=== PATIENT | female | born 1980 | race Hispanic/Latino ===

== ENCOUNTER 2020-05-20 01:37 | Emergency (ER) | payer OTHER ==
[~2020-05-20] VITALS: Ht 154.9 cm; Wt 80.7 kg
--- NOTE | 2020-05-20 02:11 | Emergency Department Note ---
History of Present Illnes History of Present Illness Chief Complaint: General Medicine Complaints History of Present Illness This is a 40 year old female arrived to the ED for cough, fever/chills. Pt states she was still going to the gym daily and her symptoms of fever started today. . Chief Complaint Comment 40 Y/O FEMALE PT AAOX3 PRESENTS TO THE ER C/O FEVER/CHILLS ONSET X1 [employer]; PT ALSO REPORTS EARLIER TODAY SHE BEGAN HAVING A NAGGING COUGH AND MUSCLE ACHES; PT IN NAD AT THIS TIME; V/S/S; RESP EVEN/UNLABORED; SKIN WARM, DRY AND WNL FOR PT; SPO2 98% RA; ER MD IN TRIAGE FOR INITIAL EVAL. Historian: Patient Arrival Mode: Car Onset (how long ago): hour(s) Severity: mild Onset quality: gradual Duration (how long): day(s) Timing of current episode: constant Relieving factors: none Past Medical/Family History Physician Review I have reviewed the patient's past medical and family history. Any updates have been documented here. Past Medical History Recent Fever: Yes (SUBJECTIVE) Clinical Suspicion of Infectio: No New/Unexplained Change in Ment: No Past Medical History: None Past Surgical History: None Other Last Tetanus: UTD Review of Systems Review of Systems Constitutional: Reports as per HPI, Reports chills, Reports fever, Reports malaise EENTM: Reports no symptoms Cardiovascular: Reports no symptoms Respiratory: Reports as per HPI, Reports cough Gastrointestinal: Reports no symptoms Genitourinary: Reports no symptoms Musculoskeletal: Reports no symptoms Integumentary: Reports no symptoms Neurological: Reports no symptoms Psychological: Reports no symptoms Endocrine: Reports no symptoms Hematological/Lymphatic: Reports no symptoms Physical Exam Related Data Allergies: Coded Allergies: No Known Allergies (Unverified , 05/20/20) Triage Vital Signs Vital Signs Date Time Temp Pulse Resp B/P (MAP) Pulse Ox O2 Delivery O2 Flow Rate FiO2 05/20/20 01:43 99.8 108 20 158/104 98 Vital signs reviewed: Yes Physical Exam CONSTITUTIONAL Constitutional: Present well-developed, Present well-nourished HENT HENT: Present normocephalic, Present atraumatic, Present oropharynx clear/moist, Present nose normal HENT L/R: Present left ext ear normal, Present right ext ear normal EYES Eyes: Reports PERRL, Reports conjunctivae normal NECK Neck: Present ROM normal PULMONARY Pulmonary: Present effort normal, Present breath sounds normal CARDIOVASCULAR Cardiovascular: Present regular rhythm, Present heart sounds normal, Present capillary refill normal, Present normal rate GASTROINTESTINAL Abdominal: Present soft, Present nontender, Present bowel sounds normal GENITOURINARY Genitourinary: Present exam deferred SKIN Skin: Present warm, Present dry MUSCULOSKELETAL Musculoskeletal: Present ROM normal NEUROLOGICAL Neurological: Present alert, Present oriented x 3, Present no gross motor or sensory deficits PSYCHOLOGICAL Psychological: Present mood/affect normal, Present judgement normal Assessment & Plan Medical Decision Making MDM 40-year-old well-appearing female arrives to the ED with complaints of cough fever loss of taste and smell. Patient is clinically presenting with signs and symptoms consistent with Covd 19. Patient informed he is positive until proven otherwise. Patient's oxygen saturation remained 99% even on exertion, no evidence of tachypnea or dyspnea noted in the ED. Spoke present length about the importance of sleeping on his stomach and rotating from side to side. Z-Fracisco given, signs and symptoms for return discussed. In the light of the Covid pandemic, disaster medicine care was given- patient understands why he was not tested for Covid, no indications for a chest x-ray at this time given normal oxygen saturation and respiratory status. The red flags for return to emergency department given. Patient understands the emergency department is open at all times to serve her needs as well as the needs of the community. Assessment & Plan Final Impression: (1) COVID-19 Depart Disposition: HOME, SELF-CARE Last Vital Signs Date Time Temp Pulse Resp B/P (MAP) Pulse Ox O2 Delivery O2 Flow Rate FiO2 05/20/20 01:43 99.8 108 20 158/104 98 LENA CROOK DO May 20, 2020 02:11
[2020-05-20 02:14] VITALS: BP 5/1
== END 2020-05-20 07:09 | disposition home or self-care (01) ==
LOC: ER 02:17
DX: U07.1 COVID-19 (principal); R50.9 Fever, unspecified; R05 Cough
CPT/HCPCS: 99283